=== PATIENT | female | born 1985 | race Caucasian/White ===

== ENCOUNTER 2018-11-17 03:08 | Emergency (ER) | payer OTHER ==
[~2018-11-17] VITALS: Ht 154.9 cm; Wt 61.2 kg
[2018-11-17] MEDS ORDERED: NOHOMEMEDICATIONS (03:24)
[2018-11-17 03:37] LABS: URINE BILIRUBIN NEGATIVE (Negative); URINE BLOOD 2+ (Negative); URINE CLARITY CLEAR; URINE COLOR YELLOW; URINE GLUCOSE-RANDOM* NEGATIVE (Negative); URINE KETONES NEGATIVE (Negative); URINE LEUKOCYTES-REFLEX NEGATIVE (Negative); URINE NITRITE-REFLEX NEGATIVE (Negative); URINE PROTEIN (DIPSTICK) NEGATIVE (Negative); URINE SPECIFIC GRAVITY 1.015 (1.005-1.035); URINE UROBILINOGEN 0.2 E.U./dl (0.2-1.0)
[2018-11-17 03:46] LABS: AMORPHOUS URATES Few /LPF (None Seen); BACTERIA-REFLEX 1-9 Few /HPF (None Seen); CASTS None Seen /LPF (None Seen); CRYSTALS None Seen /LPF (None Seen); MUCUS 0-3 Light strn/LPF (None Seen); SQUAMOUS 0-3 Few /LPF (0-3); URINE RBC 3-10 Few /HPF (0-2); URINE WBC-REFLEX 0-5 Rare /HPF (0-5)
[2018-11-17] MEDS ORDERED: NAPROSYN500 MG PO (04:02)
[2018-11-17] MEDS ORDERED: MEDROLDOSEPACK PO (04:02)
[2018-11-17] MEDS ORDERED: ULTRAM 50MG TAB50 MG PO (04:02)
[2018-11-17 04:11] VITALS: BP 174/111
== END 2018-11-17 04:12 | disposition home or self-care (01) ==
LOC: ER 03:08
PROVIDERS: Emergency Medicine
DX: M46.1 Sacroiliitis, not elsewhere classified (principal); F17.210 Nicotine dependence, cigarettes, uncomplicated

== ENCOUNTER 2021-06-08 23:23 | Emergency (ER) | payer OTHER ==
[~2021-06-08] VITALS: Ht 154.9 cm; Wt 59.0 kg
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
[~2021-06-08 23:23] MED LIST: MEDROLDOSEPACK PO; NAPROSYN500 MG PO; NOHOMEMEDICATIONS; ULTRAM 50MG TAB50 MG PO
[2021-06-09] MEDS ORDERED: PERCOCET 5-3251 EACH PO (03:07)
[2021-06-09 03:34] VITALS: BP 169/117
== END 2021-06-09 03:09 | disposition home or self-care (01) ==
LOC: ER 23:23
DX: S01.01XA Laceration without foreign body of scalp, initial encounter (principal); F17.210 Nicotine dependence, cigarettes, uncomplicated; Y08.89XA Assault by other specified means, initial encounter; Y93.89 Activity, other specified; Y92.89 Other specified places as the place of occurrence of the external cause; Y99.8 Other external cause status

== ENCOUNTER 2021-06-18 13:34 | Emergency (ER) | payer OTHER ==
[~2021-06-18] VITALS: Ht 154.9 cm; Wt 61.2 kg
[~2021-06-18 13:34] MED LIST changes: +PERCOCET 5-3251 EACH PO
[2021-06-18 13:36] VITALS: BP 161/108
== END 2021-06-18 13:50 | disposition home or self-care (01) ==
LOC: ER 13:34
DX: S36.89 Injury of other intra-abdominal organs (principal); F17.210 Nicotine dependence, cigarettes, uncomplicated; Z48.02 Encounter for removal of sutures; X58.XXXD Exposure to other specified factors, subsequent encounter